=== PATIENT | male | born 1995 | race Caucasian/White ===

== ENCOUNTER → 2018-01-17 | Outpatient (CLI) | payer SELFPAY ==
--- NOTE | 2018-01-17 13:03 | RADIOLOGY IMAGING REPORT ---
FACILITY: [facility] PATIENT NAME: Pavan Marcos : 1995 MR: [id number] V: [id number] EXAM DATE: ORDERING PHYSICIAN: EVELYN GIORDANO TECHNOLOGIST: Location: [facility] Patient: Pavan Marcos : 1995 Visit/Account:[id number] Date of Sevice: 01/17/2018 FOREARM LEFT Indication: Pain Comparison: None available Findings: Two views of the left forearm show a comminuted impacted fracture of the distal radius with mild dors al angulation and intra-articular extension of indeterminate age. There is an avulsion fracture of t he ulnar styloid. There is no focal soft tissue abnormality. No evidence of radiopaque foreign body. IMPRESSION: 1. Impacted comminuted fracture of the distal radius with intra-articular extension of indeterminate age, correlate clinically Report Dictated By: Genaro Thayer at 01/17/2018 12:55 PM Report E-Signed By: Genaro Thayer at 01/17/2018 12:58 PM WSN:[id number]
== END ==
LOC: RAD 10:26
PROVIDERS: ATTEND Internal Medicine
DX: S52.302A Unspecified fracture of shaft of left radius, initial encounter for closed fracture (principal)

== ENCOUNTER 2018-05-25 00:58 | Emergency (ER) | payer SELFPAY ==
[2018-05-25 00:59] VITALS: BP 120/93
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
== END 2018-05-25 01:15 | disposition home or self-care (01) ==
LOC: ER 01:03
DX: Z02.89 Encounter for other administrative examinations (principal); F10.920 Alcohol use, unspecified with intoxication, uncomplicated; S00.81XA Abrasion of other part of head, initial encounter; S40.812A Abrasion of left upper arm, initial encounter; Y04.0XXA Assault by unarmed brawl or fight, initial encounter
CPT/HCPCS: 99282

== ENCOUNTER 2018-06-02 04:30 | Emergency (ER) | payer SELFPAY ==
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
[2018-06-02 04:58] LABS: PLATELET COUNT, AUTOMATED 226 K/uL (150-450)
--- NOTE | 2018-06-02 05:45 | RADIOLOGY IMAGING REPORT ---
[place] [facility] [place] NAME: Pavan Marcos : 1995 MR: [id number] V: [id number] EXAM DATE: ORDERING PHYSICIAN: RACHEL MARCH TECHNOLOGIST: Location: [facility] Patient: Pavan Marcos : 1995 Visit/Account:[id number] Date of Sevice: 06/02/[address] scan without contrast COMPARISONS: None ADDITIONAL PERTINENT HISTORY: Head injury TECHNIQUE: Multiple axial images were obtained from the skull base to the vertex without IV contrast . One of the following dose optimization techniques was utilized in the performance of this exam: Aut omated exposure control; adjustment of the mA and/or kV according to the patient's size; or use of an iterative reconstruction technique. Specific details can be referenced in the facility's radiology CT exam operational policy. FINDINGS: Midline shift: Negative Ventricles: Negative Brain parenchyma: Negative Extra-axial spaces: Negative Intracranial vasculature: Negative Osseous structures: Negative Paranasal sinuses and mastoid air cells: Negative Surrounding soft tissues and orbits: Negative IMPRESSION: Normal head CT scan without contrast. Report Dictated By: Mich Roa MD at 06/02/2018 5:16 AM Report E-Signed By: Mich Roa MD at 06/02/2018 5:19 AM WSN:[id number]
--- NOTE | 2018-06-02 05:45 | RADIOLOGY IMAGING REPORT ---
[place] [facility] [place] NAME: Pavan Marcos : 1995 MR: [id number] V: [id number] EXAM DATE: ORDERING PHYSICIAN: RACHEL MARCH TECHNOLOGIST: Location: [facility] Patient: Pavan Marcos : 1995 Visit/Account:[id number] Date of Sevice: 06/02/2018 C-SPINE W/O CONTRAST COMPARISONS: None. ADDITIONAL PERTINENT HISTORY: Altered mental status TECHNIQUE: Multiple axial images were obtained from the skull base through the upper thoracic spine with coronal and sagittal reformatted images obtained without IV contrast. One of the following dose optimization techniques was utilized in the performance of this exam: Automated exposure control; adj ustment of the mA and/or kV according to the patient's size; or use of an iterative reconstruction t echnique. Specific details can be referenced in the facility's radiology CT exam operational policy. FINDINGS. Vertebral body heights and alignment: Negative. Vertebral bodies: Negative. Disc spaces: None. Cranial cervical junction: Negative. Cervical thoracic junction: Negative. Surrounding soft tissues: Negative. Lung apices: Negative. IMPRESSION: Normal CT of the cervical spine without contrast Report Dictated By: Mich Roa MD at 06/02/2018 5:26 AM Report E-Signed By: Mich Roa MD at 06/02/2018 5:32 AM WSN:[id number]
--- NOTE | 2018-06-02 06:12 | RADIOLOGY IMAGING REPORT ---
FACILITY: [facility] PATIENT NAME: Pavan Marcos : 1995 MR: [id number] V: [id number] EXAM DATE: ORDERING PHYSICIAN: RACHEL MARCH TECHNOLOGIST: Location: [facility] [place] Patient: Pavan Marcos : 1995 Visit/Account:[id number] Date of Sevice: 06/02/2018 CT facial bones Indication: trauma, altered mental status Comparison: None available Technique: Axial CT images are obtained through the facial bones. Reformatted coronal and sagittal im ages were reviewed. One of the following dose optimization techniques was utilized in the performance of this exam: Autom ated exposure control; adjustment of the mA and/or kV according to the patient's size; or use of an i terative reconstruction technique. Specific details can be referenced in the facility's radiology C T exam operational policy. FINDINGS: No acute fracture of the facial bones. Globes and orbits are grossly normal. Paranasal sinuses and mastoid air spaces are clear. Left frontal scalp contusion. The imaged intracranial contents are unremarkable. The imaged upper cervical spine is unremarkable. IMPRESSION: No acute abnormality of the facial bones. Report Dictated By: Nigel De La Fuente MD at 06/02/2018 6:06 AM Report E-Signed By: Nigel De La Fuente MD at 06/02/2018 6:08 AM WSN:[id number]
[2018-06-02 06:17] VITALS: BP 105/58
== END 2018-06-02 06:22 ==
LOC: ER 04:40
DX: Z02.89 Encounter for other administrative examinations (principal); F10.920 Alcohol use, unspecified with intoxication, uncomplicated; S00.81XA Abrasion of other part of head, initial encounter; S40.812A Abrasion of left upper arm, initial encounter; S40.811A Abrasion of right upper arm, initial encounter; Y04.0XXA Assault by unarmed brawl or fight, initial encounter; R41.82 Altered mental status, unspecified; S20.319A Abrasion of unspecified front wall of thorax, initial encounter; S20.412A Abrasion of left back wall of thorax, initial encounter
CPT/HCPCS: 36415; 70450; 70486; 72125; 80305; 80320; 81001; 82040; 82247; 82310; 82374; 82435; 82565; 82947; 84075; 84132; 84155; 84295; 84450; 84460; 84520; 85025; 99284